=== PATIENT | female | born 1935 | race Asian ===

== ENCOUNTER 2016-12-19 20:59 | Emergency (ER) | payer MEDICARE, OTHER ==
[~2016-12-19] VITALS: Ht 152.4 cm; Wt 52.4 kg
[2016-12-19] MEDS ORDERED: ONDANSETRON 2MG/ML, 2ML IVPush ONE (21:30)
[2016-12-19] MEDS ORDERED: PROPOFOL 10 MG/ML, 20ML IVPush ONE (21:30)
[2016-12-19] MEDS ORDERED: MORPHINE SULFATE 4 MG/ML, 1ML IVPush PRN (21:30)
[2016-12-19] MEDS ORDERED: SODIUM CHLORIDE FLUSH 10ML SYR IVF ONE (21:30)
[2016-12-19] MEDS ORDERED: MORPHINE SULFATE 4 MG/ML, 1ML ONE (21:37)
[2016-12-19] MEDS ORDERED: ONDANSETRON 2MG/ML, 2ML ONE (21:38)
[2016-12-19] MEDS ORDERED: PROPOFOL 10 MG/ML, 20ML ONE (21:38)
[2016-12-19] MEDS ORDERED: BUPIVACAINE 0.25% ONE (22:26)
[2016-12-19] MEDS ORDERED: BUPIVACAINE/PF 0.5% ONE (22:28)
[2016-12-19] MEDS ORDERED: BACITRACIN ZINC OINT 500U/GM, 0.9 GM ONE (23:48)
[2016-12-20 00:08] VITALS: BP 146/86
== END 2016-12-20 00:10 | disposition home or self-care (01) ==
LOC: ED 23:59
DX: S52.591A Other fractures of lower end of right radius, initial encounter for closed fracture (principal); S52.611A Displaced fracture of right ulna styloid process, initial encounter for closed fracture; W01.0XXA Fall on same level from slipping, tripping and stumbling without subsequent striking against object, initial encounter; Y93.89 Activity, other specified; Y99.8 Other external cause status; Y92.89 Other specified places as the place of occurrence of the external cause
CPT/HCPCS: 25605; 73100; 73110; 96374; 96375; 99152; 99153; 99285; J2405